=== PATIENT | female | born 1980 | race African-American/Black ===

== ENCOUNTER 2017-06-23 05:35 | Inpatient (IN) | payer OTHER ==
[~2017-06-23] VITALS: Ht 175.3 cm; Wt 109.0 kg
[2017-06-23 06:06] VITALS: BP 131/69
[2017-06-23 07:21] VITALS: BP 135/75
[2017-06-23 10:35] VITALS: BP 120/66
[2017-06-23 11:53] VITALS: BP 121/59
[2017-06-23] MEDS ORDERED: IBUPROFEN800 MG PO (17:49)
[2017-06-23] MEDS ORDERED: ENDOCET 5-3251 EACH PO (17:49)
[2017-06-23 19:00] VITALS: BP 121/60
[2017-06-24 02:36] VITALS: BP 106/51
[2017-06-24 06:33] LABS: BASOPHIL (%) 0.6 % (0-1); BASOPHIL COUNT 0.1 K/uL (0-0.1); EOSINOPHIL (%) 2.2 % (0-5); EOSINOPHIL COUNT 0.2 K/uL (0-0.3); HEMATOCRIT 32.2 % (36.0-46.0); IMMATURE GRANULOCYTE (%) 0.3 % (0.0-0.7); LYMPHOCYTE (%) 21.9 % (15-42); LYMPHOCYTE COUNT 1.9 K/uL (1.0-2.8); MCH 31.1 PG (29.0-34.0); MCHC 33.2 G/DL (30.0-36.0); MCV 93.6 FL (83-99); MONOCYTE (%) 8.8 % (3-12); MONOCYTE COUNT 0.8 K/uL (0-0.8); NEUTROPHIL (%) 66.2 % (45-76); NEUTROPHIL COUNT 5.8 K/uL (1.8-6.4); PLATELET COUNT 149 K/uL (156-360); RBC DIS.WIDTH-CV 14.6 % (11.8-14.6); RBC DIS.WIDTH-SD 49.9 % (39-53); RED BLOOD COUNT 3.44 M/uL (3.80-5.20); WHITE BLOOD COUNT 8.8 K/uL (4.1-10.2)
[2017-06-24 06:51] LABS: HEMOGLOBIN 10.7 G/DL (11.9-15.5)
[2017-06-24 07:20] VITALS: BP 110/48
[2017-06-24 09:00] VITALS: BP 126/60
[2017-06-24 11:00] VITALS: BP 134/60
[2017-06-24 15:57] VITALS: BP 128/78
[2017-06-25 07:36] VITALS: BP 127/68
== END 2017-06-25 14:43 | disposition home or self-care (01) | DRG 766 ==
LOC: 2SOUTH → 2WEST 05:35 → 2SOUTH 10:31 → 2WEST 06-25 14:43
PROVIDERS: Obstetrics & Gynecology Obstetrics
PROC: 10D00Z1 Extraction of Products of Conception, Low, Open Approach (ICD-10-PCS; principal; 2017-06-23)
DX: O34.211 Maternal care for low transverse scar from previous cesarean delivery (principal); Z3A.39 39 weeks gestation of pregnancy; Z37.0 Single live birth; O69.81X0 Labor and delivery complicated by cord around neck, without compression, not applicable or unspecified; O99.214 Obesity complicating childbirth; E66.9 Obesity, unspecified; Z3A.00 Weeks of gestation of pregnancy not specified; Z68.35 Body mass index [BMI] 35.0-35.9, adult
CPT/HCPCS: 36415; 85025; 86850; 86900; 86901; 90686; J0131; J0690; J1885; J2274; J2405; J2590; J3010; J7120